=== PATIENT | female | born 1945 | race Caucasian/White ===

== ENCOUNTER 2019-10-26 07:49 | Emergency (ER) | payer MEDICARE, OTHER, SELFPAY ==
[2019-10-26 07:52] VITALS: BP 162/91; PULSE 108; RESP 20; TEMP 37.4; O2SAT 99; BMI 27.1
--- NOTE | 2019-10-26 07:54 | W.ED.URI ---
HPI - URI/Sore Throat General: Chief Complaint: Shortness of Breath/Dyspnea Stated Complaint: COUGH Time Seen by Provider: 10/26/19 07:50 Source: patient Mode of arrival: ambulatory Limitations: no limitations History of Present Illness: HPI Narrative: Patient comes in today with 2-day illness of persistent coughing. Patient reports this morning she feels rawness in her throat and tightness in her chest when she coughs. Patient appears mildly unwell. Patient appears in no acute distress. MD elicited complaint: cough and sore throat Review of Systems General: Reports: 10 or more systems reviewed and unremarkable except in HPI and below Resp: Reports: non-productive cough PFSH ED PFSH: Social History Smoking and tobacco status: never smoked Physical Exam Const: COMMON NORMALS: no apparent distress and oriented x3 GENERAL APPEARANCE: cooperative HENMT: COMMON NORMALS: normocephalic, external ears normal, EAC's normal, TM's normal bilaterally and external nose normal HEAD & SCALP: normal to inspection and normocephalic FACE & SINUS: normal facial exam NOSE: external nose normal GENERAL EAR: hearing not grossly impaired EXTERNAL EAR: Yes external ears normal EXTERNAL AUDITORY CANAL: EAC's normal TYMPANIC MEMBRANE: TM's normal bilaterally MOUTH: oral and palatal mucosa normal THROAT: posterior oropharynx abnormal erythema and postnasal drainage Eye: COMMON NORMALS: PERRL and EOMs intact bilaterally PUPIL: Yes PERRL Neck/C-Spine: COMMON NORMALS: full ROM and no lymphadenopathy Lymph: LYMPHATIC: no lymphedema noted Chest: COMMONS NORMALS: inspection of chest normal and palpation of chest normal Resp: COMMON NORMALS: normal respiratory effort and clear to auscultation bilaterally AUSCULTATION: clear to auscultation bilaterally and diminished lung sounds on the left in the lower lung nath Cardio: COMMON NORMALS: regular rate and regular rhythm RATE: regular rate RHYTHM: regular rhythm GI: COMMON NORMALS: normal to inspection, nondistended, normoactive bowel sounds and non-tender : COMMON NORMALS: Yes no CVA tenderness BLADDER/KIDNEY EXAM: Yes no CVA tenderness Back/Pelvis: COMMON NORMALS: no CVA tenderness and thoracic and lumbar spine normal to inspection Extremity: COMMON NORMALS: normal to inspection GENERAL: No edema Neuro: COMMON NORMALS: oriented x3, moves all extremities and no focal motor deficits Psych: COMMON NORMALS: mental status grossly normal and cooperative Skin: COMMON NORMALS: no rashes or lesions noted GENERAL SKIN EXAM: no rashes or lesions noted Course Vital Signs: Vital signs: Vital Signs Temperature 99.3 F 10/26/19 07:52 Pulse Rate 111 H 10/26/19 08:28 Respiratory Rate 17 10/26/19 08:24 Blood Pressure 162/91 10/26/19 07:52 Pulse Oximetry 98 10/26/19 08:24 MDM - URI/Sore Throat MDM Narrative: Medical decision making narrative: Patient comes in today with persistent coughing for the last 2 days. Patient states that she had felt ill for about a week now been started coughing approximately 2 days. Patient thought it was allergies at first but seems to be getting worse. Patient reports no chronic lung disease. Exam notes some decreased breath sounds in the left lower base. Heart rate is slightly elevated in the 110s. Blood pressure is normal. Temperature is mildly elevated at 99.3. Pulse oxygen is 98%. Differential diagnosis includes influenza, pneumonia, bronchitis. Chest x-ray has some mild atelectasis in the left lower lung field. Suspect may be a mild pneumonia starting in the left lower lung versus chronic lung disease. We will go ahead and use doxycycline 100 mg twice a day for 10 days along with cough medicine. Patient was treated in the ER with Rocephin 1 g and 10 mg of dexamethasone. Patient was given 1 breathing treatment for cough. Encourage fluids rest and follow-up with primary care. Patient reports understanding and agreed to plan. Lab Data: Labs: Lab Results 10/26/19 Range/Units 08:05 Influenza Type A A g Negative (Negative) POC Influenza B Ag Negative (Negative) Discharge Plan Discharge Patient Disposition: Home, Self-Care Clinical Impression: Pneumonia Qualifiers: Pneumonia type: due to unspecified organism Laterality: left Lung location: lower lobe of lung Qualified Code(s): J18.9 - Pneumonia, unspecified organism Condition: Stable Prescriptions: New doxycycline hyclate 100 mg capsule 100 mg PO BID 10 Days Qty: 20 RF: 0 promethazine-DM 6.25-15 mg/5 mL syrup 5 ml PO Q6H PRN (Reason: cough) Qty: 120 RF: 0 Referrals: Trupti Escamilla MD [Primary Care Provider] - Discharge Diet: Usual diet Discharge Activity: Increase activity as tolerated Patient Instructions: Pneumonia (ED) Activity Restrictions/Additional Instructions: Drink plenty of water Activity as tolerated Medications as directed Follow-up with primary care in 3 days for recheck Return to ER for worsening symptoms or new concerns Discharge Date/Time: 10/26/19 08:55 Coding Level of Care Code ED General Ledger Bookkeeper for Maricel Fwmyke Exam Comprehensive
[2019-10-26 08:00] VITALS: O2SAT 98
--- NOTE | 2019-10-26 08:00 | XR_ITS ---
WS: [id number] XR chest 1V portable [id number] REASON FOR EXAM: cough FINDINGS: Mild chronic obstructive pulmonary disease. Scarring left lung base. The heart mediastinum were normal. No pneumonia, pleural effusion, pulmonary edema, pneumothorax, or mass effect. The hilum is and apices normal. XR/XR chest 1V portable [id number] IMPRESSION: Chronic obstructive pulmonary disease.
[2019-10-26] MEDS: acetaminophen 500 mg Tablet 1000 MG PO (08:09)
[2019-10-26 08:24] VITALS: PULSE 96; RESP 17; O2SAT 98
[2019-10-26] MEDS: ipratropium-albuterol 3 mL Neb INHALATION (08:24)
[2019-10-26 08:28] VITALS: PULSE 111
[2019-10-26] MEDS: dexamethasone 10 mg/mL INJ IM (08:32)
[2019-10-26] MEDS: lidocaine 1% INJ 20 mL 2.1 ML IM (08:32)
[2019-10-26] MEDS: cefTRIAXone 1,000 mg SDV 1000 MG IM (08:32)
[2019-10-26 08:36] LABS: Influenza A by IFA Negative (Negative); Influenza B by IFA Negative (Negative)
[2019-10-26 08:54] VITALS: BP 131/72; PULSE 102; RESP 17; O2SAT 94
== END 2019-10-26 08:55 | disposition home or self-care (01) ==
PROVIDERS: Emergency Provider Nurse Practitioner Family; PCP Pediatrics
DX: J16.8 Pneumonia due to other specified infectious organisms (principal); J44.9 Chronic obstructive pulmonary disease, unspecified
CPT/HCPCS: 12345; 71045; 87804; 94640; 96372; 99282; 99283; J0696; J1100; J2001

== ENCOUNTER 2019-11-08 07:06 | Emergency (ER) | payer MEDICARE, OTHER, SELFPAY ==
[2019-11-08 07:14] VITALS: BP 141/116; PULSE 96; RESP 20; TEMP 36.9; O2SAT 94; BMI 26.5
--- NOTE | 2019-11-08 07:19 | ED_ITS ---
HPI - Back Pain/Injury General: Chief Complaint: Back Pain/Injury Stated Complaint: Back pain Time Seen by Provider: 11/08/19 07:19 Source: patient Mode of arrival: ambulatory Limitations: no limitations History of Present Illness: HPI Narrative: Patient comes in today with low back pain. Patient states that pain is exacerbated with movement. Patient does have a history of low back pain that she has been seen for with specialists and is managed with tramadol and acetaminophen. Patient reports having pneumonia and coughing significantly over the last couple of weeks. Patient has had improvement with her cough and congestion but now has this low back pain that started in the last 2 to 3 days. Patient was seen by primary care and was recommended to continue with routine medications. Patient comes in today for continued pain and inability to rest at night. MD elicited complaint: back pain Pertinent past history: prior back pain Review of Systems General: Reports: 10 or more systems reviewed and unremarkable except in HPI and below Musc: Reports: back pain PFS ED PFSH: Social History (Updated 11/03/19 @ 10:20 by Anastasiia De Anda [facility]) Smoking and tobacco status: never smoked Second hand smoke exposure: No Alcohol intake: never Caregiver/support person: No Lives independently: Yes Physical Exam Const: COMMON NORMALS: no apparent distress and oriented x3 GENERAL APPEARANCE: cooperative HENMT: COMMON NORMALS: normocephalic, external ears normal, EAC's normal, TM's normal bilaterally and external nose normal HEAD & SCALP: normal to inspection and normocephalic FACE & SINUS: normal facial exam NOSE: external nose normal GENERAL EAR: hearing not grossly impaired EXTERNAL EAR: Yes external ears normal EXTERNAL AUDITORY CANAL: EAC's normal TYMPANIC MEMBRANE: TM's normal bilaterally MOUTH: oral and palatal mucosa normal THROAT: posterior oropharynx normal Eye: COMMON NORMALS: PERRL and EOMs intact bilaterally PUPIL: Yes PERRL Neck/C-Spine: COMMON NORMALS: full ROM and no lymphadenopathy Lymph: LYMPHATIC: no lymphedema noted Chest: COMMONS NORMALS: inspection of chest normal and palpation of chest normal Resp: COMMON NORMALS: normal respiratory effort AUSCULTATION: rhonchi (Mild rhonchi anterior that clears with cough.) Cardio: COMMON NORMALS: regular rate and regular rhythm RATE: regular rate RHYTHM: regular rhythm GI: COMMON NORMALS: normal to inspection, nondistended, normoactive bowel sounds and non-tender : COMMON NORMALS: Yes no CVA tenderness BLADDER/KIDNEY EXAM: Yes no CVA tenderness Back/Pelvis: COMMON NORMALS: no CVA tenderness LUMBAR SPINE/LOWER BACK: Yes paraspinal muscle tenderness OTHER: Exam notes paraspinous muscle tenderness to the low back increased on the left more so than the right. Patient does have some scoliosis to the low back that was noted with exam decreased range of motion is noted to the low back. Patient does have some tenderness in the sacroiliac joints bilaterally. Extremity: COMMON NORMALS: normal to inspection GENERAL: No edema Neuro: COMMON NORMALS: oriented x3, moves all extremities and no focal motor deficits Psych: COMMON NORMALS: mental status grossly normal and cooperative Skin: COMMON NORMALS: no rashes or lesions noted GENERAL SKIN EXAM: no rashes or lesions noted Course Vital Signs: Vital signs: Vital Signs Temperature 98.5 F 11/08/19 07:14 Pulse Rate 96 11/08/19 07:14 Respiratory Rate 20 H 11/08/19 07:14 Blood Pressure 141/116 11/08/19 07:14 Pulse Oximetry 94 11/08/19 07:14 MDM - Back Pain/Injury MDM Narrative: Medical decision making narrative: Patient comes in today for complaints of low back pain. Patient reports has resolving pneumonia and she is feeling better with that but occasionally she will cough and it has exacerbated her chronic low back pain. Patient denies fever or chills. Exam notes bilateral paraspinous muscles in the lumbar area. Also sacroiliac joints were tender to palpation. Skin is warm and dry. Patient is alert and oriented. Differential diagnosis includes lumbar radiculopathy, lumbar strain, osteoarthritis, degenerative disc disease, facet arthropathy. Patient was given 30 mg of Toradol with 60 mg orphenadrine with some improvement in overall pain. Repeat of chest x-ray noted persistent patchy left lower lobe pneumonia. Reviewed with patient recommended treatment with Celebrex for pain and inflammation. We will also give patient 7 tablets of hydrocodone for breakthrough pain. Patient was told to use medication sparingly due to narcotic in the medication. Will change antibiotic to Levaquin for better coverage of pneumonia. Patient reports understanding of care plan and need for follow-up with primary care. Discharge Plan Discharge Patient Disposition: Home, Self-Care Clinical Impression: Low back pain Qualifiers: Chronicity: chronic Back pain laterality: unspecified Sciatica presence: without sciatica Qualified Code(s): M54.5 - Low back pain COPD (chronic obstructive pulmonary disease) Qualifiers: COPD type: unspecified COPD Qualified Code(s): J44.9 - Chronic obstructive pulmonary disease, unspecified Pneumonia Qualifiers: Pneumonia type: due to unspecified organism Laterality: left Lung location: lower lobe of lung Qualified Code(s): J18.9 - Pneumonia, unspecified organism Condition: Stable Prescriptions: New celecoxib 100 mg capsule 100 mg PO BID Qty: 20 RF: 0 hydrocodone-acetaminophen 5-325 mg tablet 1 tab PO Q8H PRN (Reason: pain (scale score 7-10)) Qty: 7 RF: 0 levofloxacin 500 mg tablet 500 mg PO DAILY 7 Days Qty: 7 RF: 0 No Action albuterol sulfate 2.5 mg /3 mL (0.083 %) solution for nebulization 2.5 mg INHALATION Q6H Qty: 100 RF: 0 (DME) nebulizers Misc See Rx Instructions .ROUTE .MEDSUPPLY Qty: 1 RF: 0 promethazine-DM 6.25-15 mg/5 mL syrup 5 ml PO Q6H PRN (Reason: cough) Qty: 120 RF: 0 Discharge Orders: Discharge Order (Routine); Ordered 11/08/19 Ordered By: Forest Tai Referrals: Chris Nj MD [Primary Care Provider] - Discharge Diet: Usual diet Discharge Activity: Increase activity as tolerated Patient Instructions: Back Pain (ED) Activity Restrictions/Additional Instructions: Continue with nebulizer treatments as directed Drink plenty of water with medications Activity as tolerated Follow-up with primary care in one week Return to ER for worsening pain or high fever Coding Level of Care Code ED Learning And Development Consultant for Chg Fwd Exam Comprehensive
--- NOTE | 2019-11-08 07:28 | XR_ITS ---
WS: [id number] XR chest 1V portable [id number] REASON FOR EXAM: CXR, hx of pneumonia FINDINGS: A patchy alveolar infiltrate left lung base. The heart mediastinum were normal. The lung nath are slightly hyper aerated. The hilum and apices normal. XR/XR chest 1V portable [id number] IMPRESSION: Patchy pneumonia left lung base.
[2019-11-08] MEDS: ketorolac 30 mg/mL INJ IM (07:35)
[2019-11-08] MEDS: orphenadrine 30 mg/mL Inj 2 mL 60 MG IM (07:37)
--- NOTE | 2019-11-08 07:52 | PC.NURSE ---
X ray to room
--- NOTE | 2019-11-08 08:03 | PC.NURSE ---
Pt states she is feeling better
[2019-11-08] MEDS: dexamethasone 10 mg/mL INJ IM (09:15)
[2019-11-08] MEDS: levoFLOXacin 500 mg Tablet PO (09:17)
[2019-11-08 09:26] VITALS: BP 138/73; PULSE 93; RESP 16; O2SAT 98
== END 2019-11-08 09:28 | disposition home or self-care (01) ==
PROVIDERS: Emergency Provider Nurse Practitioner Family; PCP Family Medicine
DX: M54.5 Low back pain (principal); J18.9 Pneumonia, unspecified organism; J44.9 Chronic obstructive pulmonary disease, unspecified
CPT/HCPCS: 12345; 71045; 96372; 96375; 99281; 99283; J1100; J1885; J2360

== ENCOUNTER 2020-06-26 07:38 | Emergency (ER) | payer MEDICARE, OTHER, SELFPAY ==
[2020-06-26 07:43] VITALS: BP 117/70; PULSE 89; RESP 18; TEMP 36.6; O2SAT 96; BMI 23.6
--- NOTE | 2020-06-26 07:59 | ECG_ITS ---
[facility] Test Date: 2020-06-26 Pat Name: Danni Alicea Department: Room: Gender: Female Mechanics Handyman: : 1945 Requested By: Chico Jarrell Order Number: [id number] Reading MD: KAYLENE WILEY Measurements Intervals Dazey Rate: 85 P: 24 SD: 129 QRS: 39 QRSD: 82 T: 74 QT: 355 QTc: 422 Interpretive Statements SINUS RHYTHM Compared to ECG 10/10/2018 12:16:54 No significant changes Electronically Signed On 06-26-2020 19:28:50 FLAGMAN by KYALENE WILEY [id number]
--- NOTE | 2020-06-26 08:00 | CT_ITS ---
WS: [id number] CT ABDOMEN PELVIS TECHNIQUE: Contrast-enhanced CT of the abdomen and pelvis with coronal and sagittal reformatted image s. CLINICAL INFORMATION: abd pain COMPARISON: CT 10 4,018 DLP: 392.[address] scans at [facility] use at least one of these dose optimization techniques: automat ed exposure control; mA and/or kV adjustment per patient size (includes targeted exams where dose is matched to clinical indication); or iterative reconstruction. FINDINGS: Mild diffuse fatty infiltration of the liver. Normal portal vein and splenic vein. Adrenal glands are normal. Normal renal parenchymal enhancement. No hydronephrosis. Normal GE junction. Lung bases are well aerated. Slight atelectasis and fibrosis in the right middle lobe, lingula and right lower lobe posterior medially. Pancreas appears normal. Normal spleen. Normal caliber abdominal aorta. Prior hysterectomy. Sigmoid d iverticulosis. No evidence of high-grade obstruction. Fat-containing umbilical hernia. Mild chronic a ppearing compression of the T12 and L3 with anterior wedging at T12. This is new since 2018 but has a chronic appearance. CT/CT abdomen pelvis w con* [id number] IMPRESSION: 1. Mild diffuse fatty infiltration of the liver. 2. No hydronephrosis. Normal renal parenchymal enhancement bilaterally. 3. Normal caliber abdominal aorta. 4. Sigmoid diverticulosis. No evidence of acute diverticulitis. 5. Prior hysterectomy. 6. Mild compression superior endplates at T12 and L3 new since 2018 but has a chronic appearance with mild anterior wedging at T12. Message left for Chico Robles DO at 06/26/2020 10:01 AM.
--- NOTE | 2020-06-26 08:00 | XR_ITS ---
WS: [id number] XR chest 1V portable [id number] REASON FOR EXAM: dyspnea/cough FINDINGS: Mild tortuosity of the thoracic aorta with normal heart size. Mild hyperexpansion with flattening of the hemidiaphragms. Chronic minimal interstitial changes in th e lower lung nath. No active pulmonary parenchymal pleural disease. Degenerative spondylosis, moderate mid and lower thoracic spine. XR/XR chest 1V portable [id number] IMPRESSION: No acute chest abnormality.
--- NOTE | 2020-06-26 08:02 | ED_ITS ---
HPI - Nausea/Vomiting/Diarrhea General: Chief complaint: Nausea/Vomiting/Diarrhea Stated complaint: throwing up, not eating Time Seen by Provider: 06/26/20 07:59 History of Present Illness: HPI Narrative: 74-year-old female with persistent nausea and vomiting and abdominal pain. She said a total of 35 pounds of weight over the last few weeks. She is in the middle of work-up via her PCP. She was supposed to have imaging done. She denied any hematemesis coffee-ground emesis denies fever. MD elicited complaint: nausea, vomiting and abdominal pain Onset (ago): week(s) Associated nausea: Yes Associated abdominal pain: Yes Location of pain: Diffuse Pain consistency: colicky Severity: moderate Quality: cramping Exacerbating factors: none Relieving factors: none Associated symtoms: Reports anorexia, malaise and nausea; Denies altered mental status, anxiety, bloating, change in vision, chest pain, cough, diaphoresis, decreased urine output, dizziness, dysuria, epistaxis, fatigue, fecal incontinence, fevers/chills, headache(s), myalgias, numbness, palpitations, rash, short of breath, syncope, tenesmus, tinnitus or weakness Review of Systems Const: Reports: malaise; Denies: fatigue or diaphoresis Eyes: Denies: change in vision ENMT: Denies: tinnitus or epistaxis Card: Denies: chest pain, palpitations or syncope Resp: Denies: dyspnea, productive cough or non-productive cough GI: Reports: nausea; Denies: bloating or fecal incontinence : Denies: dysuria Skin/Breast: Denies: rash or pruritus Neuro: Denies: headache(s) or dizziness Psych: Denies: anxiety PFSH ED PFSH: Family History Brother Cancer Sister Cancer Father Cancer Social History Smoking and tobacco status: never smoked Second hand smoke exposure: No Alcohol intake: never Caregiver/support person: No Lives independently: Yes Physical Exam Const: COMMON NORMALS: no acute distress EXAM LIMITATIONS: no altered mental status GENERAL APPEARANCE: cooperative and comfortable ORIENTATION/CONSCIOUSNESS: Yes awake, Yes oriented to person, Yes oriented to place and Yes oriented to time HENMT: COMMON NORMALS: normocephalic, atraumatic and hearing grossly normal bilaterally HEAD & SCALP: normocephalic and atraumatic Neck/C-Spine: COMMON NORMALS: no JVD Resp: COMMON NORMALS: normal respiratory effort, No retractions, No use of accessory muscles and clear to auscultation bilaterally AUSCULTATION: clear to auscultation bilaterally Cardio: COMMON NORMALS: no JVD, regular rate, regular rhythm and No murmurs present (Cardio) RATE: regular rate RHYTHM: regular rhythm GI: COMMON NORMALS: Soft to palpation and No hepatosplenomegaly present AUSCULTATION: Yes normoactive bowel sounds PALPATION: Yes Soft to palpation, No Tenderness to palpation present (GI), No Guarding due to palpation present (GI) and Yes No hepatosplenomegaly present Extremity: COMMON NORMALS: normal to inspection, capillary refill normal, no clubbing, cyanosis or edema, no calf tenderness and no pedal edema Neuro: SENSORIUM/ORIENTATION: Yes oriented to person, Yes oriented to place and Yes oriented to time Skin: COMMON NORMALS: no rashes or lesions noted GENERAL SKIN EXAM: no rashes or lesions noted Course Vital Signs: Vital signs: Vital Signs Temperature 97.8 F 06/26/20 07:43 Pulse Rate 85 06/26/20 13:58 Respiratory Rate 16 06/26/20 13:58 Blood Pressure 108/69 06/26/20 13:58 Pulse Oximetry 96 06/26/20 13:58 MDM - Nausea/Vomiting/Diarrhea MDM Narrative: Medical decision making narrative: Patient is feeling better after fluids and antiemetics nausea vomiting have improved we will discharge her home with promethazine to use as needed, increase her pantoprazole to 40 mg daily. Clear liquid diet advance as tolerated Lab Data: Labs: Lab Results 06/26/20 06/26/20 06/26/20 Range/Units 08:15 08:15 10:17 WBC 7.4 (4.0-10.0) 10^3/ uL RBC 4.32 (4.1-5.3) 10^6/u L Hgb 13.4 (11.5-15.3) g/dL Hct 40.7 (37.0-47.0) % MCV 94.2 (81-99) fL MCH 31.0 (28.0-34.0) pg MCHC 32.9 (30.0-36.0) g/dL RDW 12.9 (12.1-15.1) % Plt Count 342 (130-400) 10^3/c mm MPV 11.3 H (7.4-10.4) fL Neut % (Auto) 69.6 % Lymph % (Auto) 21.0 % Edmonson % (Auto) 8.0 % Eos % (Auto) 0.3 % Baso % (Auto) 0.8 % Neut # (Auto) 5.12 (1.8-7.7) 10^3/u L Lymph # (Auto) 1.5 (0.8-4.8) 10^3/u L Edmonson # (Auto) 0.6 (0.2-0.9) 10^3/u L Eos # (Auto) 0.0 (0.0-0.8) 10^3/u L Baso # (Auto) 0.1 (0.0-0.1) 10^3/u L Nucleated RBC % (a uto) 0 % Nucleated RBCs # 0.0 /100WBC Sodium 133 L (136-145) mmol/L Potassium 4.6 (3.5-5.1) mmol/L Chloride 97 L (98-107) mmol/L Carbon Dioxide 23 (22-29) mmol/L Anion Gap 17.6 (5-19) BUN 11 (8-23) mg/dL Creatinine 0.9 (0.5-0.9) mg/dL GFR Calculation Not Reportable Glucose 113 (65-115) mg/dL Calculated Osmolal ity 276 L (285-295) mOsm/k g Calcium 9.9 (8.5-10.5) mg/dL Magnesium 2.2 (1.7-2.3) mg/dL Total Bilirubin 0.4 (0.15-1.2) mg/dL AST 23 (0-32) U/L ALT 10 (0-33) U/L Alkaline Phosphata se 92 (35-105) IU/L Creatine Kinase 65 (26-192) U/L Total Protein 7.9 (6.6-8.7) g/dL Albumin 4.4 (3.5-5.2) g/dL Globulin 3.5 (1.3-4.6) g/dL Lipase 36 (13-60) U/L Urine Color Yellow (Yellow) Urine Appearance Clear (CLEAR) Urine pH 7 (5-7) Ur Specific Gravit y 1.000 L (1.005-1.030) Urine Protein Neg (Negative) Urine Glucose (UA) Norm (Normal) Urine Ketones 1+ H (Negative) Urine Blood Neg (Negative) Urine Nitrate Negative (Negative) Urine Bilirubin Neg (Negative) Urine Urobilinogen Neg (Negative) mg/dL Ur Leukocyte Malgorzata ase Negative (Negative) Discharge Plan Discharge Patient Disposition: Home Clinical Impression: Nausea & vomiting Condition: Stable Prescriptions: New promethazine 12.5 mg tablet 12.5 mg PO Q6H PRN (Reason: nausea and vomiting) Qty: 20 RF: 0 Continued ondansetron HCl 4 mg tablet 4 mg PO Q8H PRN (Reason: Nausea And Vomiting) RF: 0 pantoprazole 20 mg tablet,delayed release (DR/EC) 20 mg PO DAILY RF: 0 No Action tramadol 50 mg tablet 50 - 100 mg PO Q6H PRN (Reason: Pain) RF: 0 Tylenol Extra Strength 500 mg Tablet 1,000 mg PO PRN RF: 0 zolpidem 5 mg tablet 5 mg PO BEDTIME PRN (Reason: Sleep) RF: 0 Discharge Orders: Discharge Order (Routine); Ordered 06/26/20 Ordered By: Chico Robles Referrals: Chris Nj MD [Primary Care Provider] - Discharge Date/Time: 06/26/20 11:41 Coding Level of Care Code ED Meat Team Member for Maricel Morrison
[2020-06-26 08:23] VITALS: O2SAT 95
[2020-06-26 08:45] LABS: Basophils # 0.1 10^3/uL (0.0-0.1); Basophils % 0.8 %; Eosinophils % 0.3 %; Hematocrit 40.7 % (37.0-47.0); Hemoglobin 13.4 g/dL (11.5-15.3); Lymphocytes # 1.5 10^3/uL (0.8-4.8); Mean Corpuscular HGB Conc 32.9 g/dL (30.0-36.0); Mean Corpuscular Volume 94.2 fL (81-99); Mean Platelet Volume 11.3 fL (7.4-10.4); Monocytes # 0.6 10^3/uL (0.2-0.9); Neutrophils # 5.12 10^3/uL (1.8-7.7); Neutrophils % 69.6 %; Nucleated Red Blood Cells % 0 %; Platelet Count 342 10^3/cmm (130-400); Red Blood Count 4.32 10^6/uL (4.1-5.3); Red Cell Distribution Width 12.9 % (12.1-15.1); White Blood Count 7.4 10^3/uL (4.0-10.0)
[2020-06-26] MEDS: sodium chloride 0.9% 1,000 ML 999 ML IV (08:45)
[2020-06-26] MEDS: ondansetron 2 mg/ML SDV 2 mL 4 MG IVP (08:45)
[2020-06-26 09:04] LABS: Alanine Aminotransferase 10 U/L (0-33); Albumin Level 4.4 g/dL (3.5-5.2); Alkaline Phosphatase 92 IU/L (35-105); Anion Gap 17.6 (5-19); Aspartate Amino Transferase 23 U/L (0-32); Blood Urea Nitrogen 11 mg/dL (8-23); Calcium 9.9 mg/dL (8.5-10.5); Carbon Dioxide 23 mmol/L (22-29); Chloride 97 mmol/L (98-107); Creatine Phosphokinase 65 U/L (26-192); Globulin 3.5 g/dL (1.3-4.6); Glucose 113 mg/dL (65-115); Lipase 36 U/L (13-60); Magnesium 2.2 mg/dL (1.7-2.3); Osmolality Calculated 276 mOsm/kg (285-295); Potassium 4.6 mmol/L (3.5-5.1); Sodium 133 mmol/L (136-145); Total Bilirubin 0.4 mg/dL (0.15-1.2); Total Protein 7.9 g/dL (6.6-8.7)
--- NOTE | 2020-06-26 09:17 | PC.NURSE ---
pt to CT by stretcher with tech
[2020-06-26] MEDS: iohexol 300 mg/mL 100 mL Btl IV (09:22)
[2020-06-26 10:17] VITALS: BP 127/76; PULSE 90; O2SAT 99
[2020-06-26 10:33] LABS: Add Urine Microscopic? NO; Bilirubin Urine Neg (Negative); Blood Urine Neg (Negative); Glucose Urine UA Norm (Normal); Ketones Urine 1+ (Negative); Leukocyte Esterase Urine Negative (Negative); Nitrate Urine Negative (Negative); Protein Urine Neg (Negative); Urine Appearance Clear (CLEAR); Urine Color Yellow (Yellow); Urobilinogen Urine Neg (Negative); pH Urine 7 (5-7)
[2020-06-26 13:58] VITALS: BP 108/69; PULSE 85; RESP 16; O2SAT 96
== END 2020-06-26 11:41 | disposition home or self-care (01) ==
PROVIDERS: Emergency Provider Family Medicine; PCP Family Medicine
DX: R11.2 Nausea with vomiting, unspecified (principal)
CPT/HCPCS: 12345; 71045; 74177; 80053; 81003; 82550; 83690; 83735; 85025; 93005; 96361; 96374; 96375; 99283; J2405; J7030; Q9967

== ENCOUNTER → 2020-08-03 13:54 | Outpatient (BNVA) | payer MEDICARE, OTHER, SELFPAY | PROVIDERS: PCP Family Medicine; Visit Provider Nurse Practitioner Family | DX: N39.0 Urinary tract infection, site not specified (principal); R33.9 Retention of urine, unspecified | CPT/HCPCS: 81003; 87086 ==

== ENCOUNTER → 2020-09-14 10:18 | Outpatient (BNVA) | payer MEDICARE, OTHER, SELFPAY | PROVIDERS: PCP Family Medicine; Visit Provider Urology | DX: N39.0 Urinary tract infection, site not specified (principal) | CPT/HCPCS: 81003 ==

== ENCOUNTER → 2020-10-26 08:49 | Outpatient (BNVA) | payer MEDICARE, OTHER, SELFPAY | PROVIDERS: PCP Family Medicine; Visit Provider Urology | DX: N39.0 Urinary tract infection, site not specified (principal) | CPT/HCPCS: 81003 ==

== ENCOUNTER → 2021-03-25 16:01 | Outpatient (BNVA) | payer MEDICARE, OTHER, SELFPAY | PROVIDERS: PCP Family Medicine; Visit Provider Nurse Practitioner Family | DX: N39.0 Urinary tract infection, site not specified (principal) | CPT/HCPCS: 81003; 87077; 87086; 87184 ==

== ENCOUNTER → 2021-06-01 16:46 | Outpatient (BNVA) | payer MEDICARE, OTHER, SELFPAY | PROVIDERS: PCP Family Medicine; Visit Provider Urology | DX: N39.0 Urinary tract infection, site not specified (principal) | CPT/HCPCS: 81003; 87086 ==

== ENCOUNTER → 2021-06-21 15:25 | Outpatient (BNVA) | payer MEDICARE, OTHER, SELFPAY | PROVIDERS: PCP Family Medicine; Visit Provider Obstetrics & Gynecology | DX: R33.9 Retention of urine, unspecified (principal) | CPT/HCPCS: 81000 ==

== ENCOUNTER → 2021-06-24 14:08 | Outpatient (BNVA) | payer MEDICARE, OTHER, SELFPAY | PROVIDERS: PCP Family Medicine; Visit Provider Physician Assistant | DX: M54.9 Dorsalgia, unspecified (principal); S22.000A Wedge compression fracture of unspecified thoracic vertebra, initial encounter for closed fracture; S32.000A Wedge compression fracture of unspecified lumbar vertebra, initial encounter for closed fracture; M81.0 Age-related osteoporosis without current pathological fracture | CPT/HCPCS: 72072; 72110 ==

== ENCOUNTER → 2021-07-02 00:01 | Outpatient (BNVA) | payer MEDICARE, OTHER, SELFPAY | PROVIDERS: PCP Family Medicine; Visit Provider Obstetrics & Gynecology | DX: R33.9 Retention of urine, unspecified (principal) | CPT/HCPCS: 87086 ==

== ENCOUNTER 2021-07-20 14:13 | Outpatient (CLI) | payer MEDICARE, OTHER, SELFPAY ==
--- NOTE | 2021-07-20 15:15 | MR_ITS ---
WS: [id number] MRI LUMBAR SPINE NONCONTRAST TECHNIQUE: Sagittal T1, T2 and STIR imaging. Axial T1 and T2 imaging. CLINICAL INFORMATION: S22.000A - Wedge compression fracture of unspecified thor... COMPARISON: None. FINDINGS: Mild lumbar curve. Compression fracture superior endplate L3 vertebral body with a tiny trace of erkia a likely subacute in chronicity. No retropulsion. Loss of approximately 20% vertebral body height sup erior endplate. Chronic compression T12 vertebral body. Tiny syrinx lower thoracic cord previously de scribed on the thoracic spine MRI. L1-L2: Mild annular bulging. Spinal canal and foramen are patent. L2-L3: Minimal disc bulging. Mild facet arthropathy. Spinal canal and foramen are patent. L3-L4: Mild disc bulging with slight impingement on the right subarticular recess and traversing righ t L4 nerve root. Moderate facet arthropathy. Spinal canal and foramen are patent. L4-L5: Mild annular bulging with mild central canal stenosis. Tiny shallow central protrusion. Encroa chment traversing L5 nerve roots bilaterally. Moderate facet arthropathy. Foramen are patent. Minimal anterolisthesis L4 on L5. L5-S1: Minimal annular bulging. Tiny annular fissure. Spinal canal and foramen are patent. Moderate f acet arthropathy. Visualized pelvic bony structures: Normal. Paravertebral soft tissues: Normal. MR/MR lumbar spine wo con* [id number] IMPRESSION: 1. Mild compression of the L3 vertebral body with trace edema compatible with subacute compression. No retropulsion. 2. Chronic compression T12 vertebral body described on the thoracic spine MRI. 3. Tiny syrinx lower thoracic cord described on the concurrent thoracic spine MRI. 4. Mild central canal stenosis L4-5 with narrowing of the subarticular recess bilaterally. 5. Annular bulging L3-4 with slight impingement on the traversing right L4 ner ve root. 6. Moderate facet arthropathy L3-L4 and L5-S1.
--- NOTE | 2021-07-20 16:00 | MR_ITS ---
WS: [id number] MRI THORACIC SPINE WITHOUT CONTRAST TECHNIQUE: Sagittal T1, T2 and STIR imaging. Axial T2 imaging. Noncontrast imaging obtained. CLINICAL INFORMATION: S32.000A - Wedge compression fracture of unspecified lumb... COMPARISON: None. FINDINGS: Mild thoracic curve. Mild thoracic kyphosis. No acute appearing compression fracture. Chronic appeari ng mild compression superior endplate T12 vertebral body with loss of approximately 20% vertebral bod y height. No significant edema. No retropulsion. No high-grade central canal stenosis. Additional mild chronic appearing compression superior endplate L3 vertebral body. Tiny Syrinx in the cervical cord more prominent in the upper thoracic cord at T7 and T8 and T12. This has a maximum dimension of 1 mm. Cord signal is otherwise normal. Normal CSF pulsation artifact in the sp inal canal. Moderate facet arthropathy lower thoracic spine. Moderate facet arthropathy lower thoracic spine. Nor mal caliber thoracic aorta. MR/MR thoracic spin wo con* [id number] IMPRESSION: 1. Mild thoracic curve. Mild thoracic kyphosis. Chronic compression with anter ior wedging at T12 and L3 described above. No acute appearing compression fract ures. 2. No high-grade central canal stenosis. 3. Tiny syrinx in the upper and lower thoracic cord described above with maxim um AP dimension of 1 mm. 4. No other acute findings.
== END 2021-07-20 14:14 | disposition home or self-care (01) ==
LOC: RADSHAW 14:17
PROVIDERS: PCP Family Medicine; Visit Provider Physician Assistant
DX: S22.000A Wedge compression fracture of unspecified thoracic vertebra, initial encounter for closed fracture (principal); S32.039A Unspecified fracture of third lumbar vertebra, initial encounter for closed fracture; X58.XXXA Exposure to other specified factors, initial encounter; M47.816 Spondylosis without myelopathy or radiculopathy, lumbar region; M47.817 Spondylosis without myelopathy or radiculopathy, lumbosacral region; M51.26 Other intervertebral disc displacement, lumbar region; M48.061 Spinal stenosis, lumbar region without neurogenic claudication
CPT/HCPCS: 72146; 72148

== ENCOUNTER → 2021-08-11 09:34 | Outpatient (BNVA) | payer MEDICARE, OTHER, SELFPAY | PROVIDERS: PCP Family Medicine; Referring Provider Physician Assistant; Visit Provider Anesthesiology Pain Medicine | DX: M47.816 Spondylosis without myelopathy or radiculopathy, lumbar region (principal); S32.000A Wedge compression fracture of unspecified lumbar vertebra, initial encounter for closed fracture; S22.000A Wedge compression fracture of unspecified thoracic vertebra, initial encounter for closed fracture; X58.XXXA Exposure to other specified factors, initial encounter; Z79.891 Long term (current) use of opiate analgesic; Z87.891 Personal history of nicotine dependence | CPT/HCPCS: 99205 ==

== ENCOUNTER 2021-09-07 05:38 | Day surgery (SDC) | payer MEDICARE, OTHER, SELFPAY ==
[2021-09-06 10:24] VITALS: BMI 24.3
[2021-09-07] VITALS (12 sets, daily range): BP systolic 120–156; BP diastolic 71–90; PULSE 75–86; RESP 16–18; TEMP 36.2–36.7; O2SAT 95–98
--- NOTE | 2021-09-07 | SCC_ITS ---
PROCEDURE: 1 . L3 Kyphoplasty and biopsy 2. Fluoroscopic Guidance of the above 91.7 seconds of fluoroscopic guidance, for a cumulative dose of 98.90 mGy and 26.41 mGy, was provided to Dr. Wilson by the radiology department. C-arm images of the lumbar spine were saved for the patient's permanent record. [facility]
--- NOTE | 2021-09-07 06:37 | ANES.PREANE2 ---
Pre-Anesthetic Assessment Pre-Anesthetic Assessment: Height/Weight: Height 1.57 m Weight 60.328 kg Temp Pulse Resp BP Pulse Ox 98.0 F 78 18 156/90 96 09/07/21 05:56 09/07/21 05:56 09/07/21 05:56 09/07/21 05:56 09/07/21 05:56 Preop Diagnosis: Compression fracture Proposed Procedure: Operation Date: 09/07/21 07:00 Proposed Procedures p Kyphoplasty(Not Applicable) - Sumit Wilson MD Familial anesthetic complications: None Was Beta Oliva taken within 24 hours: N/A Was Clonidine taken within 24 hours: N/A Last intake: Intake Last Liquid Date 09/06/21 Last Liquid Time 18:00 Last Solid Date 09/06/21 Last Solid Time 18:00 Social: Social History: No alcohol and No tobacco Exam: Pre-Anes Outpt Exam: alert, oriented x 3, clear to auscultation bilaterally and regular rate & rhythm Airway: MP: 1 Dentition: False Anesthetic Plan: ASA status: 1 Anesthesia: MAC Risk of > 500 ml blood loss (7ml/kg in children): No PFSH Anesthesia PFSH: Medical History Recurrent UTI Urinary retention Surgical History H/O right knee surgery H/O: hysterectomy History of colectomy S/P cholecystectomy Family History Brother Cancer AML Sister Heart disease Father , at age 67 Cancer Mother , at age 82 Stroke Colon cancer Daughter Anesthesia complication Grandmother No problems noted. Denies family history of Ovarian cancer Diabetes Clotting disorder Hyperlipidemia Breast cancer Bleeding disorder Hypertension Uterine cancer Thyroid condition Social History Marital status: Current occupational status: retired Data Anesthesia Cardiac Studies: No Data to Display
--- NOTE | 2021-09-07 06:53 | SC_ITS ---
WS: [id number] Exam: C-arm FL for Kyphoplasty Date/Time of Exam: 09/07/2021 6:53 AM Reason For Exam: intra-op Single intraoperative PA view of the lower lumbar spine is submitted for evaluation. There are signs of kyphoplasty treatment of a compression fracture of L3. Remaining visualized aspect s of the lumbar spine are unremarkable from the PA view. Several linear opaque densities are seen cinthya ng the left paraspinal region and may represent surgical gauze. No other significant finding on this limited study.
--- NOTE | 2021-09-07 06:53 | W.PM.OPSUD ---
Surgery/Procedure H&P Update DATE OF PROCEDURE: September 07, 2021 DATE H&P PERFORMED: 08/11/21 H&P UPDATE INFORMATION: I have reviewed H&P completed within last 30 days, I have examined patient prior to procedure and No changes to prior documentation PREOP DIAGNOSIS: Compression fracture PLANNED PROCEDURE: Pt. still with Operation Date: 09/07/21 07:00 Proposed Procedures p Kyphoplasty(Not Applicable) - Sumit Wilson MD Related Problem List Diagnoses (1) Compression fracture of L3 vertebra:
[2021-09-07] MEDS: iohexol 300 mg/mL 50 mL Btl (OR ONLY) XX (07:37)
[2021-09-07] MEDS: fentaNYL 50 mcg/mL INJ 2mL IVP (08:23)
[2021-09-07] MEDS: HYDROcodone-acetaminophen 5-325 mg Tablet 1 TAB PO (08:48)
--- NOTE | 2021-09-07 09:12 | PM.OP ---
Operative Report Date of procedure: September 07, 2021 Pre-op Diagnosis: Compression fracture Post-op diagnosis: same Anesthesia: MAC Estimated blood loss (mL): 5 Condition: stable Disposition: PACU Brief History: History of L3 compression fracture. Procedure: DATE OF OPERATION: 09/07/2021 PREOPERATIVE DIAGNOSIS: L3 vertebral compression fracture POSTOPERATIVE DIAGNOSIS: Same PROCEDURE: 1 . L3 Kyphoplasty and biopsy 2. Fluoroscopic Guidance of the above SURGEON: Sumit Wilson M.D. ANESTHESIA: MAC PROCEDURE IN DETAIL: Informed consent was obtained, explaining risks, benefits, and alternatives of the procedure to the patient. Operative site was marked in the holding area. The patient was then taken to the procedure room and placed in the prone position on the procedure table. The back and buttocks were prepped with ChloraPrep solution and a sterile drape was applied. A time-out was performed to verify the correct patient, procedure, and location. Using fluoroscopy, the spine was examined. The ( L3 ) level was verified in AP and lateral views. I planned a bilateral trans pedicular approach. A skin wheal was raised and the subcutaneous tissues anesthetized with 1% lidocaine approximately 5ml on the right side. A small stab incision was made with a #15 blade. The introducer cannula was advanced to dock with the right pedicle in an AP view. It was advanced through the pedicle using a mallet in both AP and lateral views, taking care not to traverse the medial aspect of the pedicle in the AP view until the tip was into the vertebral body. The cannula was advanced to the posterior third of the body in a lateral view. Following this a biopsy probe was advanced to the anterior 1/3 of the vertebral body and withdrawn under fluoro guidance. The manual drill was used to then create space into which deploy the balloon. Balloon was then placed and inflated. Position in AP and lateral views was optimal. Next a skin wheal was raised and the subcutaneous tissues anesthetized with 1% lidocaine approximately 5ml on the left side. A small stab incision was made with a #15 blade. The introducer cannula was advanced to dock with the pedicle in an AP view. It was advanced through the pedicle using a mallet in both AP and lateral views, taking care not to traverse the medial aspect of the pedicle in the AP view until the tip was into the vertebral body. The cannula was advanced to the posterior third of the body in a lateral view. The manual drill was used to then create space into which deploy the balloon. Balloon was then placed and inflated. Position in AP and lateral views was optimal. Balloons were removed and I placed barium impregnated PMMA cement under direct fluoroscopic visualization ruling out extravasation or vascular uptake. There was good interdigitization and filling of the vertebral body. The cannulas were removed making sure not to withdraw any cement. 3-0 nylon was used to close the minimal incision and sterile dressing was applied. The patient tolerated the procedure well with no apparent complications. IMPRESSION: successful kyphoplasty of L3 vertebral body.
[2021-09-07] MEDS: fentaNYL 50 mcg/mL INJ 2mL 25 MCG IVP ×2 (09:30→09:44)
--- NOTE | 2021-09-07 12:42 | ANE.PACU2 ---
Inpatient post-anesthesia follow up: Airway intact: Yes Vital signs: Temperature 97.3 F Pulse Rate 76 Respiratory Rate 18 Blood Pressure 128/76 Pulse Oximetry 95 Oxygen Delivery Me thod Room Air Oxygen Flow Rate Fraction of Inspir ed Oxygen Hydration adequate: Yes Nausea and vomiting: No Pain level: 2 Mental status: Baseline
== END 2021-09-07 10:23 | disposition home or self-care (01) ==
PROVIDERS: Anesthesiology Pain Medicine; PCP Family Medicine; Visit Provider Orthopaedic Surgery
DX: S32.030A Wedge compression fracture of third lumbar vertebra, initial encounter for closed fracture (principal); X58.XXXA Exposure to other specified factors, initial encounter
CPT/HCPCS: 20251; 22514; 76000; 88307; 88311; J0690; J2704; J3010

== ENCOUNTER → 2021-09-15 12:38 | Outpatient (BNVA) | payer MEDICARE, OTHER, SELFPAY | PROVIDERS: PCP Family Medicine; Visit Provider Anesthesiology Pain Medicine | DX: Z48.89 Encounter for other specified surgical aftercare (principal); M54.50 Low back pain, unspecified | CPT/HCPCS: 99024 ==

== ENCOUNTER → 2021-10-21 09:37 | Outpatient (BNVA) | payer MEDICARE, OTHER, SELFPAY | PROVIDERS: PCP Family Medicine; Visit Provider Anesthesiology Pain Medicine | DX: M47.816 Spondylosis without myelopathy or radiculopathy, lumbar region (principal); S32.000A Wedge compression fracture of unspecified lumbar vertebra, initial encounter for closed fracture; S22.000A Wedge compression fracture of unspecified thoracic vertebra, initial encounter for closed fracture; X58.XXXA Exposure to other specified factors, initial encounter; Z79.891 Long term (current) use of opiate analgesic; Z87.891 Personal history of nicotine dependence | CPT/HCPCS: 99214 ==

== ENCOUNTER 2021-10-25 13:46 | Emergency (ER) | payer MEDICARE, OTHER, SELFPAY ==
[2021-10-25 14:13] VITALS: BP 115/70; PULSE 85; RESP 16; TEMP 36.9; O2SAT 97; BMI 25.0
--- NOTE | 2021-10-25 15:19 | W.ED.BACK ---
HPI - Back Pain/Injury General: Chief Complaint: Back Pain/Injury Stated Complaint: Low back pain Time Seen by Provider: 10/25/21 15:10 Source: patient Mode of arrival: ambulatory Limitations: no limitations History of Present Illness: 75-year-old female presents to the emergency room with complaints of back pain. Back pain been going on for the last 3 years seems little worse lately. She had difficulty with emptying her bladder she had a catheter and was recently taken out she is full self caths not been able to get self catheter completed and she feels like she is not able to urinate and not able to empty her bladder completely. Cohen was taken out 5 days ago. They have her scheduled to get an MRI but has not yet been completed. She not having any radicular leg pain she denies any flank pain she denies any hematuria dysuria urgency or frequency however she did states she has a UTI. MD elicited complaint: back pain Pertinent past history: prior back pain Onset (ago): year(s) Timing: constant Severity: moderate Similar Symptoms Previously: Yes Quality: sharp Location: lumbar spine Radiation: none Exacerbating factors: none Relieving factors: none Associated symptoms: Deny abdominal pain, arthralgias, chills, change in bowel habits, difficulty walking, dysuria, fatigue, fecal incontinence, fever(s), hematuria, myalgias, nausea, numbness, syncope, tingling/numbness/burning, urinary frequency, urinary urgency, vomiting or weakness Review of Systems Const: Denies: fever(s), chills or fatigue ENMT: Denies: throat pain, ear or mastoid pain, nasal discharge or nasal congestion Card: Denies: syncope Resp: Denies: dyspnea, productive cough or non-productive cough GI: Denies: abdominal pain, nausea, vomiting, fecal incontinence or change in bowel habits : Denies: dysuria, urinary urgency or hematuria Skin/Breast: Denies: rash or pruritus Neuro: Denies: difficulty walking PFSH ED PFSH: Medical History Recurrent UTI Urinary retention Surgical History H/O right knee surgery H/O: hysterectomy History of colectomy S/P cholecystectomy Family History Brother Cancer AML Sister Heart disease Father , at age 67 Cancer Mother , at age 82 Stroke Colon cancer Daughter Anesthesia complication Grandmother No problems noted. Denies family history of Ovarian cancer Diabetes Clotting disorder Hyperlipidemia Breast cancer Bleeding disorder Hypertension Uterine cancer Thyroid condition Social History Smoking and tobacco status: former smoker Marital status: Current occupational status: retired Physical Exam Const: COMMON NORMALS: no acute distress GENERAL APPEARANCE: cooperative and comfortable ORIENTATION/CONSCIOUSNESS: Yes awake, Yes oriented to person, Yes oriented to place and Yes oriented to time HENMT: COMMON NORMALS: normocephalic, atraumatic and hearing grossly normal bilaterally HEAD & SCALP: normocephalic and atraumatic Neck/C-Spine: COMMON NORMALS: no JVD Resp: COMMON NORMALS: normal respiratory effort, No retractions, No use of accessory muscles and clear to auscultation bilaterally AUSCULTATION: clear to auscultation bilaterally Cardio: COMMON NORMALS: no JVD, regular rate, regular rhythm and No murmurs present (Cardio) RATE: regular rate RHYTHM: regular rhythm GI: COMMON NORMALS: Soft to palpation and No hepatosplenomegaly present AUSCULTATION: Yes normoactive bowel sounds PALPATION: Yes Soft to palpation, No Tenderness to palpation present (GI), No Guarding due to palpation present (GI) and Yes No hepatosplenomegaly present : COMMON NORMALS: Yes no CVA tenderness BLADDER/KIDNEY EXAM: Yes no CVA tenderness Back/Pelvis: COMMON NORMALS: no CVA tenderness Extremity: COMMON NORMALS: normal to inspection, capillary refill normal, no clubbing, cyanosis or edema, no calf tenderness and no pedal edema Neuro: SENSORIUM/ORIENTATION: Yes oriented to person, Yes oriented to place and Yes oriented to time OTHER: Straight leg raising negative dorsum plantar flexion 5 5 sensation lower extremities normal Skin: COMMON NORMALS: no rashes or lesions noted GENERAL SKIN EXAM: no rashes or lesions noted Course Vital Signs: Vital signs: Vital Signs Temperature 98.5 F 10/25/21 17:13 Pulse Rate 81 10/25/21 17:13 Respiratory Rate 16 10/25/21 17:13 Blood Pressure 120/76 10/25/21 17:13 Pulse Oximetry 98 10/25/21 17:13 MDM - Back Pain/Injury Medical Decision Making Patient clearly has cystitis. We have advised her that we need to get a post void residual she had wanted to leave. Explained to her why it would be important is concerned she is retaining urine this will cause her cystitis to worsen likely developed to pyelonephritis. Despite this she declined to stay left the nurses tried to convince her otherwise I was with another patient and she had left after I had talked to her and she had said she would stay. Unfortunately she left without antibiotics reprinted after discharge and asked the nurse to call her and call in some oral antibiotics encourage her to follow-up with her primary care doctor. Since she left early were unable to address her urinary retention issues because we have not completed her evaluation. Medical Records I reviewed the patient's medical records. Labs I reviewed the patient's lab results. : 10/25/21 16:04 10/25/21 16:04 Laboratory Results WBC 6.3 10^3/uL (4.0-10.0) 10/25/21 16:04 RBC 3.72 10^6/uL (4.1-5.3) L 10/25/21 16:04 Hgb 11.7 g/dL (11.5-15.3) 10/25/21 16:04 Hct 36.6 % (37.0-47.0) L 10/25/21 16:04 MCV 98.4 fl (81-99) 10/25/21 16:04 MCH 31.5 pg (28.0-34.0) 10/25/21 16:04 MCHC 32.0 g/dL (30.0-36.0) 10/25/21 16:04 RDW 12.8 % (12.1-15.1) 10/25/21 16:04 Plt Count 355 10^3/cmm (130-400) 10/25/21 16:04 MPV 10.3 fL (7.4-10.4) 10/25/21 16:04 Neut % (Auto) 57.7 % 10/25/21 16:04 Lymph % (Auto) 26.9 % 10/25/21 16:04 [place] % (Auto) 12.5 % 10/25/21 16:04 Eos % (Auto) 1.4 % 10/25/21 16:04 Baso % (Auto) 0.9 % 10/25/21 16:04 Neut # (Auto) 3.64 10^3/uL (1.8-7.7) 10/25/21 16:04 Lymph # (Auto) 1.7 10^3/uL (0.8-4.8) 10/25/21 16:04 [place] # (Auto) 0.8 10^3/uL (0.2-0.9) 10/25/21 16:04 Eos # (Auto) 0.1 10^3/uL (0.0-0.8) 10/25/21 16:04 Baso # (Auto) 0.1 10^3/uL (0.0-0.1) 10/25/21 16:04 Nucleated RBC % (auto) 0 % 10/25/21 16:04 Nucleated RBCs # 0.0 /100WBC 10/25/21 16:04 Sodium 133 mmol/L (136-145) L 10/25/21 16:04 Potassium 4.4 mmol/L (3.5-5.1) 10/25/21 16:04 Chloride 95 mmol/L (98-107) L 10/25/21 16:04 Carbon Dioxide 26 mmol/L (22-29) 10/25/21 16:04 Anion Gap 16.4 (5-19) 10/25/21 16:04 BUN 10 mg/dL (8-23) 10/25/21 16:04 Creatinine 0.9 mg/dL (0.5-0.9) 10/25/21 16:04 GFR Calculation Not Reportable 10/25/21 16:04 Glucose 110 mg/dL (65-115) 10/25/21 16:04 Calculated Osmolality 276 mOsm/kg (285-295) L 10/25/21 16:04 Calcium 9.0 mg/dL (8.5-10.5) 10/25/21 16:04 Urine Color Yellow (Yellow) 10/25/21 15:20 Urine Appearance Sl hazy (CLEAR) 10/25/21 15:20 Urine pH 6 (5-7) 10/25/21 15:20 Ur Specific [place] 1.010 (1.005-1.030) 10/25/21 15:20 Urine Protein Trace (Negative) 10/25/21 15:20 Urine Glucose (UA) Norm (Normal) 10/25/21 15:20 Urine Ketones Negative (Negative) 10/25/21 15:20 Urine Blood 2+ (Negative) H 10/25/21 15:20 Urine Nitrate Positive (Negative) H 10/25/21 15:20 Urine Bilirubin Neg (Negative) 10/25/21 15:20 Urine Urobilinogen Norm mg/dL (Negative) 10/25/21 15:20 Ur Leukocyte Esterase 2+ (Negative) H 10/25/21 15:20 Urine RBC None /hpf (0-2) 10/25/21 15:20 Urine WBC Too numerous to cnt /hpf (0-5) H 10/25/21 15:20 Ur Squamous Epith Cells None /hpf (0-5) 10/25/21 15:20 Amorphous Sediment Not Reportable 10/25/21 15:20 Urine Bacteria 4+ /hpf (NONE) H 10/25/21 15:20 Discharge Plan Discharge Patient Disposition: Left Against Medical Advice Clinical Impression: Cystitis, Urinary retention Condition: Stable Prescriptions: New ciprofloxacin HCl 500 mg tablet 500 mg PO BID Qty: 14 0RF No Action hydrocodone-acetaminophen 5-325 mg tablet 1 tab PO BID MDD 2 tabs PRN (Reason: Pain) 0RF ciprofloxacin HCl [Cipro] 500 mg tablet 500 mg PO BID Qty: 60 1RF Tylenol Ex Str Rapid Release 500 mg Tablet 500 mg PO Q6H PRN (Reason: Pain) 0RF zolpidem 5 mg tablet 5 mg PO BEDTIME 0RF methocarbamol 750 mg tablet 750 mg PO BID PRN (Reason: Spasms) 0RF tamsulosin 0.4 mg capsule 0.4 mg PO BEDTIME 0RF Discharge Orders: Discharge ED (Routine); Ordered 10/25/21 Ordered By: Chico Robles Referrals: Gabrielle Carvajal DO [Primary Care Provider] - Discharge Diet: Usual diet Discharge Activity: Resume usual activity Activity Restrictions/Additional Instructions: Since you elected to leave AGAINST MEDICAL ADVICE were not able to complete her work-up. If you change your mind you are welcome to come back at any point so we can finish the evaluation. Recommend you continue self-catheterization. Follow-up with your primary care doctor the next 2 to 3 days. Coding Level of Care Code ED [employer] Inspector for Chg Fwd Exam Comprehensive
--- NOTE | 2021-10-25 15:54 | PC.PHAR ---
pt states she takes care of her own medications-rx filled on 10/19/21 5d/s for percocet5/325mg 1 tab po q6h prn pt states it made her sick and only took 2 tabs -
[2021-10-25 16:20] LABS: Add Urine Microscopic? YES; Bilirubin Urine Neg (Negative); Blood Urine 2+ (Negative); Glucose Urine UA Norm (Normal); Ketones Urine Negative (Negative); Leukocyte Esterase Urine 2+ (Negative); Nitrate Urine Positive (Negative); Protein Urine Trace (Negative); Urine Appearance SL Hazy (CLEAR); Urine Color Yellow (Yellow); Urobilinogen Urine Norm (Negative); pH Urine 6 (5-7)
[2021-10-25 16:31] LABS: Basophils # 0.1 10^3/uL (0.0-0.1); Basophils % 0.9 %; Eosinophils # 0.1 10^3/uL (0.0-0.8); Eosinophils % 1.4 %; Hematocrit 36.6 % (37.0-47.0); Hemoglobin 11.7 g/dL (11.5-15.3); Lymphocytes # 1.7 10^3/uL (0.8-4.8); Lymphocytes % 26.9 %; Mean Corpuscular Hemoglobin 31.5 pg (28.0-34.0); Mean Corpuscular Volume 98.4 fl (81-99); Mean Platelet Volume 10.3 fL (7.4-10.4); Monocytes # 0.8 10^3/uL (0.2-0.9); Monocytes % 12.5 %; Neutrophils # 3.64 10^3/uL (1.8-7.7); Neutrophils % 57.7 %; Nucleated Red Blood Cells % 0 %; Platelet Count 355 10^3/cmm (130-400); Red Blood Count 3.72 10^6/uL (4.1-5.3); Red Cell Distribution Width 12.8 % (12.1-15.1); White Blood Count 6.3 10^3/uL (4.0-10.0)
[2021-10-25 16:34] LABS: Add Urine Culture? Yes; Bacteria Urine 4+ /hpf; WBC Urine TOO NUMEROUS TO CNT /hpf (0-5)
[2021-10-25 16:46] LABS: Anion Gap 16.4 (5-19); Blood Urea Nitrogen 10 mg/dL (8-23); Carbon Dioxide 26 mmol/L (22-29); Chloride 95 mmol/L (98-107); Glucose 110 mg/dL (65-115); Osmolality Calculated 276 mOsm/kg (285-295); Potassium 4.4 mmol/L (3.5-5.1); Sodium 133 mmol/L (136-145)
[2021-10-25] MEDS: cefTRIAXone 1,000 MG in lidocaine 1% 2.1 ML 2.3 MG IM (16:58)
[2021-10-25 17:13] VITALS: BP 120/76; PULSE 81; RESP 16; TEMP 36.9; O2SAT 98
== END 2021-10-25 17:01 | disposition left against medical advice (07) ==
PROVIDERS: Emergency Provider Family Medicine; PCP Family Medicine
DX: N30.90 Cystitis, unspecified without hematuria (principal); R33.9 Retention of urine, unspecified; Z53.21 Procedure and treatment not carried out due to patient leaving prior to being seen by health care provider; Z87.440 Personal history of urinary (tract) infections; Z87.891 Personal history of nicotine dependence
CPT/HCPCS: 51798; 80048; 81001; 85025; 87077; 87086; 87186; 96372; 99283; J0696

== ENCOUNTER → 2022-11-15 13:33 | Outpatient (BNVA) | payer MEDICARE, OTHER, SELFPAY | PROVIDERS: PCP Family Medicine; Visit Provider Urology | DX: R33.9 Retention of urine, unspecified (principal); N30.20 Other chronic cystitis without hematuria | CPT/HCPCS: 51798; 81003; 87077; 87086; 87186; 99213 ==